=== PATIENT | female | born 1990 | race African-American/Black ===

== ENCOUNTER 2020-08-13 10:08 | Outpatient (CLI) | payer OTHER, SELFPAY ==
[2020-08-13 11:05] LABS: CRP 2.2 mg/dL (<1.0)
[2020-08-13 11:30] LABS: Erythrocyte Sedimentation Rate 87 mm/hr (0-20)
[2020-08-18 20:33] LABS: Tissue Transglutaminase IgA Ab 1 U/mL (<4)
[2020-08-18 21:29] LABS: Tissue Transglutaminase IgG Ab 4 U/mL (<6)
== END 2020-08-13 10:09 | disposition home or self-care (01) ==
PROVIDERS: PCP Family Medicine; Visit Provider Internal Medicine Gastroenterology
DX: R10.9 Unspecified abdominal pain (principal); R19.7 Diarrhea, unspecified; R74.8 Abnormal levels of other serum enzymes
CPT/HCPCS: 36415; 83516; 85652; 86038; 86140

== ENCOUNTER → 2020-09-11 00:29 | Outpatient (CLI) | payer OTHER, SELFPAY ==
[2020-09-11 18:59] LABS: SARS-CoV-2 RNA PCR Negative
== END ==
PROVIDERS: PCP Family Medicine; Visit Provider Internal Medicine Gastroenterology
DX: Z01.812 Encounter for preprocedural laboratory examination (principal); Z20.822 Contact with and (suspected) exposure to COVID-19
CPT/HCPCS: C9803; U0003; U0005

== ENCOUNTER 2020-09-14 00:59 | Day surgery (SDC) | payer OTHER, SELFPAY ==
[2020-09-01 13:14] VITALS: BMI 39.6
[2020-09-14 07:13] VITALS: BP 114/74; PULSE 92; RESP 18; TEMP 36.8; O2SAT 98
[2020-09-14] MEDS: LACTATED RINGERS 1,000 ML 150 ML IV CONT (07:26)
--- NOTE | 2020-09-14 07:54 | WPDANESEPPF ---
Anes - Initial Pre Proc Eval Procedure: Operation Date: 09/14/20 08:45 Proposed Procedures p Esophagogastroduodenoscopy & Colonoscopy - Mich Dang MD Date/Time: 09/14/20 07:54 Surgeon: Mich Dang MD Pre Op Diagnosis: Diarrhea, Nausea, Vomiting,GERD Patient Data Age: 30 Gender: F Height: 5 ft 5 in Weight: 105.3 kg Last Vital Signs Temp 98.2 F 09/14/20 07:13 Pulse 92 09/14/20 07:13 Resp 18 09/14/20 07:13 BP 114/74 09/14/20 07:13 Pulse Ox 98 09/14/20 07:13 Allergies Allergy/AdvReac Type Severity Reaction Status Date / Time amoxicillin AdvReac Mild NAUSEA Verified 09/14/20 07:11 clavulanic acid AdvReac Mild NAUSEA Verified 09/14/20 07:11 nitrofurantoin AdvReac Mild NAUSEA/VOMI Verified 09/14/20 07:11 TING SERTRALINE HCL AdvReac Unknown UPSET Uncoded 09/14/20 07:11 STOMACH, HEADACHE Home Medications Medication Instructions Recorded Confirmed Type albuterol sulfate 90 mcg/actuation 1 puff INHALATION Q4H PRN 08/13/20 09/14/20 History aerosol inhaler budesonide-formoterol HFA 80 2 puff INHALATION Q12H 08/13/20 09/14/20 History mcg-4.5 mcg/actuation aerosol inhaler celecoxib 100 mg capsule 100 mg PO BID 08/13/20 09/14/20 History cyclobenzaprine 10 mg tablet 10 mg PO BID tablet 08/13/20 09/14/20 History escitalopram oxalate 10 mg tablet 10 mg PO DAILY 08/13/20 09/14/20 History montelukast 10 mg tablet 10 mg PO DAILY 08/13/20 09/14/20 History topiramate 100 mg tablet 150 mg PO DAILY 08/13/20 09/14/20 History perphenazine 8 mg PO HS 09/01/20 09/14/20 History Patient hx anesthesia problems: none Family hx anesthesia problems: none PMFSH Past Medical History Medical History (Updated 08/13/20 @ 09:55 by Mich Dang MD) Abdominal pain Asthma Diarrhea GERD (gastroesophageal reflux disease) Headache Nausea & vomiting Severe obesity (BMI >= 40) Family History Family History (Updated 08/13/20 @ 09:33 by Leatha Lee CMA) Grandparent Diabetes mellitus Breast cancer Social History Social History (Updated 08/13/20 @ 09:33 by Leatha Lee CMA) Smoking status: Never smoker Alcohol intake: never Substance use: never Substance use type: does not use Living arrangements: with family Gender identity (if verbalized by the patient): Female Spiritual care concerns: No Anes - Eval Final PreProcedure Day of Procedure 09/14/20 07:54 Patient weight: obese Heart: regular rate and rhythm Lungs: clear to auscultation Airway: Mallampati scale class II Neurological: alert and oriented Last oral intake: >/= 8 hours ASA classification: II Emergent: no Anesthetic plan: proceed Anesthesia type and monitoring: general GIVS and standard monitoring Informed Consent: The patient's anesthetic plan and its attendant risks and benefits were discussed with the patient/family/POA. Questions were solicited and answers provided to the satisfaction of the patient/family/POA.
--- NOTE | 2020-09-14 08:07 | PM.HPGS ---
History of Present Illness History of Present Illness Consent: Risks, benefits, and alternatives have been discussed and questions answered. Patient agrees to proceed with procedure. Chief complaint: Diarrhea, Nausea, Vomiting,GERD Narrative: Hailey Middleton is a 30 year old female with diarrhea and reflux symptoms on antacids prn, also had elevated inflammatory markers, serology for celiac was negative Review of Systems Constitutional: Constitutional: Denies headache(s) and Denies weakness Eyes: Eyes: Denies blurry vision ENT: Reports Normal hearing present, Denies headache(s) and Denies neck pain Cardiovascular: Cardiovascular: Denies chest pain and Denies dyspnea Respiratory: Respiratory: Denies dyspnea Gastrointestinal: Gastrointestinal: Reports no additional gastrointestinal complaints Genitourinary: Genitourinary: Denies dysuria Musculoskeletal: Musculoskeletal: Denies neck pain Integumentary/Breasts: Skin/Breast: Denies dry skin Neurologic: Reports Normal hearing present, Denies headache(s) and Denies weakness Psychiatric: Psychiatric: Denies anxiety Endocrine: Endocrine: Denies change in body appearance Hematologic/Lymphatic: Hematologic/Lymphatic: Denies easy bleeding Allergic/Immunologic: Allergic/Immunologic: Denies urticaria PMFSH Past Medical History Medical History (Updated 08/13/20 @ 09:55 by Mich Dang MD) Abdominal pain Asthma Diarrhea GERD (gastroesophageal reflux disease) Headache Nausea & vomiting Severe obesity (BMI >= 40) Family History Family History (Updated 08/13/20 @ 09:33 by Leatha Lee CMA) Grandparent Diabetes mellitus Breast cancer Social History Social History (Updated 08/13/20 @ 09:33 by Leatha Lee CMA) Smoking status: Never smoker Alcohol intake: never Substance use: never Substance use type: does not use Living arrangements: with family Gender identity (if verbalized by the patient): Female Spiritual care concerns: No Meds Home Medications and Allergies Home Medications Medication Instructions Recorded Confirmed Type albuterol sulfate 90 mcg/actuation 1 puff INHALATION Q4H PRN 08/13/20 09/14/20 History aerosol inhaler budesonide-formoterol HFA 80 2 puff INHALATION Q12H 08/13/20 09/14/20 History mcg-4.5 mcg/actuation aerosol inhaler celecoxib 100 mg capsule 100 mg PO BID 08/13/20 09/14/20 History cyclobenzaprine 10 mg tablet 10 mg PO BID tablet 08/13/20 09/14/20 History escitalopram oxalate 10 mg tablet 10 mg PO DAILY 08/13/20 09/14/20 History montelukast 10 mg tablet 10 mg PO DAILY 08/13/20 09/14/20 History topiramate 100 mg tablet 150 mg PO DAILY 08/13/20 09/14/20 History perphenazine 8 mg PO HS 09/01/20 09/14/20 History Allergies Allergy/AdvReac Type Severity Reaction Status Date / Time amoxicillin AdvReac Mild NAUSEA Verified 09/14/20 07:11 clavulanic acid AdvReac Mild NAUSEA Verified 09/14/20 07:11 nitrofurantoin AdvReac Mild NAUSEA/VOMI Verified 09/14/20 07:11 TING SERTRALINE HCL AdvReac Unknown UPSET Uncoded 09/14/20 07:11 STOMACH, HEADACHE Vital Signs Vital Signs - 24 hr 09/14/20 07:13 Temperature 98.2 F Pulse Rate 92 Respiratory Rate 18 Blood Pressure 114/74 Pulse Oximetry 98 Exam Const: General: comfortable and no acute distress HENMT: General nose exam: Normal nares present Eyes: General: appearance normal, both eyes and all related structures Neck: Neck: no JVD Resp: Auscultation: clear to auscultation bilaterally Cardio: Rate: regular rate Rhythm: regular rhythm GI: Inspection: non-distended GI Palp: Yes Soft to palpation Skin: General skin exam: normal color Neuro: General: gait normal Speech: normal speech Extrem: General: normal to inspection Psych: Mental Status: mental status grossly normal Assessment and Plan Assessment and plan (1) GERD (gastroesophageal reflux disease): Code(s): K21.9 - G
[2020-09-14 08:38] VITALS: BP 110/67; PULSE 83; RESP 18; O2SAT 97
[2020-09-14 08:48] VITALS: BP 112/73; PULSE 72; RESP 17; O2SAT 97
[2020-09-14 08:58] VITALS: BP 118/77; PULSE 73; RESP 22; O2SAT 100
== END 2020-09-14 09:10 | disposition home or self-care (01) ==
PROVIDERS: PCP Family Medicine; Visit Provider Internal Medicine Gastroenterology
PROC: 0DJ08ZZ Inspection of Upper Intestinal Tract, Via Natural or Artificial Opening Endoscopic (ICD-10-PCS; CPT 43235; principal; 2020-09-14 08:45)
DX: R11.2 Nausea with vomiting, unspecified (principal); K29.50 Unspecified chronic gastritis without bleeding; R19.7 Diarrhea, unspecified; K44.9 Diaphragmatic hernia without obstruction or gangrene; K21.9 Gastro-esophageal reflux disease without esophagitis; J45.909 Unspecified asthma, uncomplicated; E66.01 Morbid (severe) obesity due to excess calories; Z83.3 Family history of diabetes mellitus
CPT/HCPCS: 43239; 45380; 88305; J2704; J7120

== ENCOUNTER 2021-07-10 14:58 | Emergency (ER) | payer OTHER, SELFPAY ==
[2021-07-10 15:00] VITALS: BP 136/86; PULSE 100; RESP 18; TEMP 36; O2SAT 99
--- NOTE | 2021-07-10 19:06 | PC.NURSE ---
not found in waiting room to be placed in room.
== END 2021-07-10 19:17 | disposition left against medical advice (07) ==
LOC: ANHED 19:17
PROVIDERS: PCP Family Medicine
DX: M54.50 Low back pain, unspecified (principal)
CPT/HCPCS: 99199

== ENCOUNTER 2021-07-14 14:26 | Emergency (ER) | payer OTHER, SELFPAY ==
[2021-07-14 14:38] VITALS: BP 127/74; PULSE 94; RESP 16; TEMP 37.2; O2SAT 98
--- NOTE | 2021-07-14 15:12 | ED.URI ---
HPI - URI/Sore Throat General Chief Complaint: Upper Respiratory Infection Stated Complaint: cough/sky/congestion Time Seen by Provider: 07/14/21 15:07 Source: patient and RN notes reviewed Mode of arrival: ambulatory Limitations: no limitations History of Present Illness HPI Narrative: Patient presents today with 1 week history of nausea, severe headache, chest tightness with cough, body aches, congestion with sinus pressure, fatigue. History of asthma. Denies fever or sore throat. She has been using her inhaler and nebulizer treatments without much relief. MD elicited complaint: cough and nasal congestion Related Data Home Medications Medication Instructions Recorded Confirmed albuterol sulfate 90 mcg/actuation 1 puff INHALATION Q4H PRN 08/13/20 09/14/20 aerosol inhaler budesonide-formoterol HFA 80 2 puff INHALATION Q12H 08/13/20 09/14/20 mcg-4.5 mcg/actuation aerosol inhaler celecoxib 100 mg capsule 100 mg PO BID 08/13/20 09/14/20 cyclobenzaprine 10 mg tablet 10 mg PO BID tablet 08/13/20 09/14/20 escitalopram oxalate 10 mg tablet 10 mg PO DAILY 08/13/20 09/14/20 montelukast 10 mg tablet 10 mg PO DAILY 08/13/20 09/14/20 topiramate 100 mg tablet 150 mg PO DAILY 08/13/20 09/14/20 perphenazine 8 mg PO HS 09/01/20 09/14/20 Allergies Allergy/AdvReac Type Severity Reaction Status Date / Time amoxicillin AdvReac Mild NAUSEA Verified 09/14/20 07:11 clavulanic acid AdvReac Mild NAUSEA Verified 09/14/20 07:11 nitrofurantoin AdvReac Mild NAUSEA/VOMI Verified 09/14/20 07:11 TING SERTRALINE HCL AdvReac Unknown UPSET Uncoded 09/14/20 07:11 STOMACH, HEADACHE Review of Systems Review of Systems: CONSTITUTIONAL: Denies fever, chills, or sweats.+ Fatigue, body aches EYES: Denies visual changes, redness, or discharge. ENT: Denies rhinorrhea, sore throat.+ Congestion, right ear pain CARDIOVASCULAR: Denies chest pain, palpitations, or edema. RESPIRATORY: + Cough, intermittent shortness of breath GASTROINTESTINAL: Denies abdominal pain, vomiting, or diarrhea.+ Nausea GENITOURINARY: Denies dysuria or hematuria. SKIN: Denies rash, itching, or wounds. MUSCULOSKELETAL: Denies back pain, joint pain, or myalgia. NEUROLOGIC: Denies numbness, tingling, or weakness.+ Headache PSYCH: Denies depression or anxiety. [facility] Past Medical History Medical History Abdominal pain Asthma Diarrhea GERD (gastroesophageal reflux disease) Headache Nausea & vomiting Severe obesity (BMI >= 40) Family History Family History Grandparent Diabetes mellitus Breast cancer Social History Social History Smoking status: Never smoker Alcohol intake: never Substance use: never Substance use type: does not use Gender identity (if verbalized by the patient): Female Spiritual care concerns: No Comments At time of signature, I have reviewed and agree with nursing past medical, surgical, social and family history unless otherwise noted. Please see nursing chart for further information. There is no relevant family history pertinent to the presenting complaint Exam Narrative: GENERAL: Mildly ill-appearing, well-nourished, and in no acute distress. HEAD: Normocephalic, atraumatic. EYES: EOMI. No redness or drainage. Conjunctivae normal. ENT: Mucous membranes pink and moist. Nares clear. No rhinorrhea. TMs normal bilaterally. Throat normal. Uvula midline. NECK: Normal AROM. Supple. No lymphadenopathy. CHEST: No respiratory distress. Clear to auscultation. HEART: Regular rate and rhythm. No murmur appreciated. Normal peripheral pulses. EXTREMITIES: Normal range of motion. No edema. SKIN: Warm, dry, no rash. Capillary refill normal. Normal skin turgor. NEURO: No focal deficits. Alert and oriented x3. Gait steady. PSYCH: Normal affect. No
== END 2021-07-14 15:44 | disposition home or self-care (01) ==
PROVIDERS: Emergency Provider Nurse Practitioner
DX: U07.1 COVID-19 (principal); J45.909 Unspecified asthma, uncomplicated; K21.9 Gastro-esophageal reflux disease without esophagitis; E66.01 Morbid (severe) obesity due to excess calories; Z68.38 Body mass index [BMI] 38.0-38.9, adult
CPT/HCPCS: 87426; 99213; C9803; G0463

== ENCOUNTER 2021-10-21 07:45 | Outpatient (CLI) | payer OTHER, SELFPAY ==
[2021-10-21 08:33] LABS: Basophils Absolute Auto 0.1 K/mm3 (0.0-0.1); Basophils Percent Auto 0.8 % (0.2-1.2); Eosinophils Absolute Auto 0.5 K/mm3 (0-0.3); Eosinophils Percent Auto 7.9 % (0-4.4); Hematocrit 38.1 % (37.0-47.0); Hemoglobin 11.8 g/dL (12.0-15.0); Immature Granulocyte Absolute 0.02 K/mm3 (0.00-0.031); Immature Granulocyte Percent A 0.3 % (0-0.5); Lymphocytes Absolute Auto 2.95 K/mm3 (0.9-3.2); Lymphocytes Percent Auto 44.9 % (18.3-44.2); Mean Corpuscular Hemoglobin 27.3 pg (26-34); Mean Platelet Volume 9.4 fl (7.4-10.4); Monocytes Absolute Auto 0.6 K/mm3 (0.1-0.6); Neutrophils Absolute Auto 2.4 K/mm3 (1.3-6.7); Neutrophils Percent Auto 37.1 % (45.5-73.1); Platelet Count Result 374 k/mm3 (150-375); Red Blood Count 4.33 M/mm3 (4.2-5.4); White Blood Count 6.6 K/mm3 (4.5-10.0)
[2021-10-21 08:45] LABS: CRP 1.9 mg/dL (<1.0); Creatine Kinase 94 U/L (30-135)
[2021-10-21 09:29] LABS: Erythrocyte Sedimentation Rate 22 mm/hr (0-20); Free T4 Free Thyroxine 0.94 ng/mL (0.78-2.19)
[2021-10-24 12:37] LABS: Aldolase 4.2 U/L (<=8.1)
[2021-10-24 20:14] LABS: SM Antibody <1.0; SM/RNP Antibody <1.0
[2021-10-26 15:59] LABS: Albumin 3.5 g/dL (3.8-4.8); Alpha 1 Globulin 0.3 g/dL (0.2-0.3); Alpha 2 Globulin 0.7 g/dL (0.5-0.9); Beta 1 Globulin 0.4 g/dL (0.4-0.6); Gamma Globulin 1.2 g/dL (0.8-1.7); Protein, Total 6.5 g/dL (6.1-8.1)
== END 2021-10-21 07:46 | disposition home or self-care (01) ==
LOC: ANHLAB 07:52
DX: R70.0 Elevated erythrocyte sedimentation rate (principal)
CPT/HCPCS: 36415; 82085; 82550; 84155; 84165; 84439; 84443; 85025; 85652; 86140; 86235

== ENCOUNTER 2022-06-05 08:26 | Emergency (ER) | payer OTHER, SELFPAY ==
--- NOTE | 2022-06-05 08:32 | ED.URI ---
HPI - URI/Sore Throat General Chief Complaint: Upper Respiratory Infection Stated Complaint: uri Time Seen by Provider: 06/05/22 08:53 Source: patient and RN notes reviewed Mode of arrival: ambulatory Limitations: no limitations History of Present Illness HPI Narrative: 32-year-old female with history of asthma presents with concern for 2 week history of nasal congestion, rhinorrhea, cough. Reports sore throat just started 3 days ago. Reports she started to feel better than symptoms worsen. She reports cough is persistent and productive. Reports sinus pain. Reports she has been using Mucinex without relief. MD elicited complaint: cough and nasal congestion Related Data Home Medications Medication Instructions Recorded Confirmed albuterol sulfate 90 mcg/actuation 1 puff inhalation Q4H PRN 08/13/20 06/05/22 aerosol inhaler (ProAir HFA) Shortness Of Breath montelukast 10 mg tablet 10 mg PO DAILY 08/13/20 06/05/22 (Singulair) topiramate 100 mg tablet (Topamax) 150 mg PO DAILY 08/13/20 06/05/22 aripiprazole 10 mg tablet (Abilify) 10 mg PO DAILY 06/05/22 06/05/22 propranolol 10 mg tablet 10 mg PO Q12H 06/05/22 06/05/22 venlafaxine 75 mg capsule,extended 75 mg PO DAILY 06/05/22 06/05/22 release 24 hr Allergies Allergy/AdvReac Type Severity Reaction Status Date / Time sertraline AdvReac Intermediate Nausea and Verified 06/05/22 08:44 Vomiting amoxicillin AdvReac Mild NAUSEA Verified 06/05/22 08:44 clavulanic acid AdvReac Mild NAUSEA Verified 06/05/22 08:44 nitrofurantoin AdvReac Mild NAUSEA/VOMI Verified 06/05/22 08:44 TING Review of Systems Review of Systems: CONSTITUTIONAL: Reports malaise. Denies chills, sweats, or fever. EYES: Denies visual changes, redness, or discharge. ENT: Reports rhinorrhea, congestion, sinus pain, and sore throat. CARDIOVASCULAR: Denies chest pain, palpitations, or edema. RESPIRATORY: Reports productive persistent cough. Denies dyspnea. GASTROINTESTINAL: Denies abdominal pain, nausea, vomiting, diarrhea SKIN: Denies rash or itching. MUSCULOSKELETAL: Denies myalgia. NEUROLOGIC: Denies headache. All systems reviewed & are unremarkable except as noted in HPI and below PMFSH Past Medical History Medical History Abdominal pain Asthma Diarrhea GERD (gastroesophageal reflux disease) Headache Nausea & vomiting Severe obesity (BMI >= 40) Family History Family History Grandparent Diabetes mellitus Breast cancer Social History Social History Smoking status: Never smoker Alcohol intake: never Substance use: never Substance use type: does not use Gender identity (if verbalized by the patient): Female Spiritual care concerns: No Comments At time of signature, agree with nursing past medical, surgical, social and family history. There is no relevant family history pertinent to the presenting complaint Exam Narrative: GENERAL: Well-appearing, well-nourished, and in no acute distress. HEAD: Normocephalic EYES: PERRLA, conjunctivae clear ENT: Nares clear, turbinates edematous and erythematous, clear discharge. Mucous membranes moist. TM pearly grajeda with dull light reflex bilaterally; no tragal tenderness. Oropharynx not erythematous without lesions. Tonsils not enlarged and without exudate, no drooling, no hoarseness, no trismus, uvula midline. NECK: Supple. No lymphadenopathy CHEST: Clear to auscultation, breath sounds equal. No wheezing, rhonchi, rales, or stridor. No respiratory distress, speaks in full sentences. HEART: Regular rate and rhythm. No murmur heard. SKIN: Warm, dry, no rash. NEURO: Alert and oriented x3. PSYCH: Normal mood and affect Course Course Emergency Course: Patient is aware of diagnosis, understands and agrees to treatment plan. Anticipatory guidance given.
[2022-06-05 08:36] VITALS: BP 113/58; PULSE 88; RESP 16; TEMP 36.5; O2SAT 99
== END 2022-06-05 09:09 | disposition home or self-care (01) ==
PROVIDERS: Emergency Provider Nurse Practitioner
DX: J40 Bronchitis, not specified as acute or chronic (principal)
CPT/HCPCS: 99213; G0463

== ENCOUNTER 2024-01-31 17:42 | Emergency (ER) | payer BC, OTHER, SELFPAY ==
[2024-01-31 17:59] VITALS: BP 110/86; PULSE 100; RESP 16; TEMP 37.1; O2SAT 100
[2024-01-31 18:03] LABS: EDUAAPPEAR Clear; EDUABILI 2+; EDUABLOOD 3+; EDUACOLOR1 Yellow; EDUAGLUCOSE 1+; EDUAKETONE 2+; EDUALEUKO Trace; EDUANITRATE Negative; EDUAPROTEIN Trace; EDUASPGRAVITY 1.025; EDUAUROBILI 0.2
[2024-01-31 18:09] VITALS: BP 110/86; PULSE 100; RESP 16; TEMP 37.1; O2SAT 100
[2024-01-31 18:26] LABS: EDINFLUASCREEN Negative; EDINFLUBSCREEN Negative
--- NOTE | 2024-01-31 18:31 | ED.GENADULT ---
HPI - General Adult General Chief complaint: Unspecified Stated complaint: no sleep 3 days,back spasms,nauseated,SUMNER Source: patient Mode of arrival: ambulatory Limitations: no limitations History of Present Illness HPI narrative: Patient presents for evaluation of sick symptoms for last 2 days. Symptoms include hot flashes, chills, headache, epigastric pain, nausea, vomiting, back pain, generalized body aches and urinary frequency. She denies sore throat, diarrhea, or other urinary symptoms. Last bowel movement today, solid and consistency. No recent sick contacts to her knowledge. LMP yesterday. She has not been taking any medication to assist with her symptoms. She states she has had incidental urinary tract infections in the past at which time she was asymptomatic. Related Data Home Medications Medication Instructions Recorded Confirmed albuterol sulfate 90 mcg/actuation 1 puff inhalation Q4H PRN 08/13/20 01/31/24 aerosol inhaler (ProAir HFA) Shortness Of Breath montelukast 10 mg tablet 10 mg PO DAILY 08/13/20 01/31/24 (Singulair) atogepant 60 mg tablet (Qulipta) 60 mg PO DAILY 01/31/24 01/31/24 diazepam 5 mg tablet See Rx Instructions .Route .COMPLEX 01/31/24 01/31/24 prednisone 10 mg tablet 10 mg PO DAILY 01/31/24 01/31/24 semaglutide (weight loss) 1 mg/0.5 See Rx Instructions .Route .COMPLEX 01/31/24 01/31/24 mL subcutaneous pen injector (Reinier) trazodone 100 mg tablet 100 mg PO DAILY 01/31/24 01/31/24 venlafaxine 150 mg 150 mg PO DAILY 01/31/24 01/31/24 capsule,extended release 24 hr venlafaxine 37.5 mg 37.5 mg PO DAILY 01/31/24 01/31/24 capsule,extended release 24 hr Allergies Allergy/AdvReac Type Severity Reaction Status Date / Time sertraline AdvReac Intermediate Nausea and Verified 01/31/24 17:48 Vomiting amoxicillin AdvReac Mild NAUSEA Verified 01/31/24 17:48 clavulanic acid AdvReac Mild NAUSEA Verified 01/31/24 17:48 nitrofurantoin AdvReac Mild NAUSEA/VOMI Verified 01/31/24 17:48 TING Review of Systems Review of Systems: CONSTITUTIONAL: Reports flashes and chills. EYES: Denies visual changes, redness, or discharge. ENT: Denies rhinorrhea, congestion, sore throat, or otalgia. CARDIOVASCULAR: Denies chest pain, palpitations, or edema. RESPIRATORY: Denies cough or dyspnea. GASTROINTESTINAL: reports nausea and vomiting. Reports epigastric pain. Denies diarrhea. GENITOURINARY: Reports urinary frequency. Denies dysuria or hematuria. SKIN: Denies rash or itching. MUSCULOSKELETAL: reports generalized body aches and back pain NEUROLOGIC: Reports headache. Denies numbness, dizziness, or weakness. PSYCHIATRIC: Denies anxiety or depression. [facility] Past Medical History Medical History Abdominal pain Anxiety Asthma Diarrhea Fibromyalgia GERD (gastroesophageal reflux disease) Headache Nausea & vomiting Severe obesity (BMI >= 40) Surgical History Surgical History (Updated 01/31/24 @ 18:35 by Gilberto Lua [facility], ) No pertinent past surgical history Family History Family History Grandparent Diabetes mellitus Breast cancer Social History Social History Smoking status: Never smoker Alcohol intake: never Substance use: never Substance use type: does not use Living arrangements: with family Occupation/Education: occupation Gender identity (if verbalized by the patient): Female Spiritual care concerns: No Exam Narrative: GENERAL: Well-appearing, well-nourished, and in no acute distress. HEAD: Normocephalic, atraumatic. EYES: PERRLA and EOMI. ENT: Nares clear, no rhinorrhea or epistaxis. Mucous membranes moist. Oropharynx without tonsillar hypertrophy exudate or other lesions. Bilateral TMs pearly grajeda nonbulging NECK: Supple. No adenopathy or masses.
== END 2024-01-31 18:33 | disposition home or self-care (01) ==
PROVIDERS: Emergency Provider Nurse Practitioner; PCP Physician Assistant Medical
DX: N39.0 Urinary tract infection, site not specified (principal); J06.9 Acute upper respiratory infection, unspecified; Z20.822 Contact with and (suspected) exposure to COVID-19; J45.909 Unspecified asthma, uncomplicated; M79.7 Fibromyalgia; K21.9 Gastro-esophageal reflux disease without esophagitis; F41.9 Anxiety disorder, unspecified; E66.01 Morbid (severe) obesity due to excess calories; Z68.36 Body mass index [BMI] 36.0-36.9, adult
CPT/HCPCS: 81003; 87086; 87088; 87426; 87804; 99213; G0463